=== PATIENT | female | born 1995 | race Caucasian/White ===

== ENCOUNTER 2017-11-05 18:07 | Observation (INO) | payer MEDICAID ==
[~2017-11-05] VITALS: Ht 170.2 cm; Wt 103.9 kg
--- NOTE | 2017-11-05 18:13 | NUR ---
BROUGHT BY EMS---TAKEN TO L&D, CIARA RN NOTIFIED
[2017-11-05 20:09] VITALS: BP 104/61
== END 2017-11-05 19:40 | disposition home or self-care (01) ==
LOC: MLD 18:20 → EDSTATUS 18:40
PROVIDERS: ADMIT Obstetrics & Gynecology; ATTEND Obstetrics & Gynecology
DX: O26.899 Other specified pregnancy related conditions, unspecified trimester (principal); R10.9 Unspecified abdominal pain; Z3A.00 Weeks of gestation of pregnancy not specified
CPT/HCPCS: G0378